=== PATIENT | female | born 1955 | race Caucasian/White ===

== ENCOUNTER 2023-08-30 16:24 | Emergency (ER) | payer BC ==
[~2023-08-30] VITALS: Ht 157.5 cm; Wt 61.4 kg
[2023-08-30 16:37] VITALS: BP 162/74; PULSE 62; RESP 18; TEMP 98; O2SAT 100
[2023-08-30 17:10] LABS: BASOPHILS % (AUTO) 0.2 % (0-1); EOSINOPHILS # (AUTO) 0.2 X10'3 (0-0.9); EOSINOPHILS % (AUTO) 3.2 % (0-6); HEMOGLOBIN 13.7 g/dl (12.0-16.0); LYMPHOCYTES % (AUTO) 30.5 % (21-51); MEAN CORPUSCULAR HEMOGLOBIN 29.8 PG (27.0-31.0); MEAN CORPUSCULAR HGB CONC 33.5 g/dL (33.0-36.5); MEAN PLATELET VOLUME 10.3 FL (7.4-10.4); MONOCYTES # (AUTO) 0.4 X10'3 (0-0.9); MONOCYTES % (AUTO) 6.7 % (2-12); NEUTROPHILS # (AUTO) 3.8 X10'3 (1.8-7.7); NEUTROPHILS % (AUTO) 59.4 % (42-75); PLATELET COUNT 121 X10'3 (140-440); RED BLOOD COUNT 4.61 X10'6 (4.20-5.60); RED CELL DISTRIBUTION WIDTH 14.1 % (11.5-14.5); WHITE BLOOD COUNT 6.4 X10'3 (4.5-11.0)
[2023-08-30 17:33] LABS: ALBUMIN 4.4 G/DL (3.4-5.0); ANION GAP 7 (8-16); BLOOD UREA NITROGEN 15 MG/DL (7-18); BUN/CREATININE RATIO 18.1 (10.0-20.0); CALCIUM 10.2 MG/DL (8.5-10.1); CHLORIDE 106 MMOL/L (99-107); CREATININE 0.83 MG/DL (0.40-0.90); GLUCOSE 110 MG/DL (70-104); POTASSIUM 3.9 MMOL/L (3.5-5.1); PRO BRAIN NATRIURETIC PEPTIDE 200 PG/ML (0-125); SODIUM 141 MMOL/L (135-145); TOTAL CARBON DIOXIDE 28.5 MMOL/L (24-32); eCRCL 53 ML/MIN; eGFR 69 ML/MIN
== END 2023-08-30 21:52 | disposition left against medical advice (07) ==
LOC: ER 16:25
DX: R07.9 Chest pain, unspecified (principal); Z53.21 Procedure and treatment not carried out due to patient leaving prior to being seen by health care provider
CPT/HCPCS: 36415; 71045; 80048; 83880; 84484; 85025; 93005

== ENCOUNTER 2023-09-13 07:35 | Emergency (ER) | payer BC ==
[~2023-09-13] VITALS: Ht 157.5 cm; Wt 61.0 kg
[2023-09-13 07:39] VITALS: BP 123/54; PULSE 54; RESP 16; TEMP 98.6; O2SAT 100
== END 2023-09-13 10:54 | disposition left against medical advice (07) ==
LOC: ER 07:36
DX: R19.7 Diarrhea, unspecified (principal); F41.9 Anxiety disorder, unspecified; Z53.21 Procedure and treatment not carried out due to patient leaving prior to being seen by health care provider

== ENCOUNTER 2023-10-07 15:51 | Emergency (ER) | payer BC, MEDICAID ==
[~2023-10-07] VITALS: Ht 157.5 cm; Wt 62.4 kg
[2023-10-07 16:19] LABS: BASOPHILS % (AUTO) 0.4 % (0-1); EOSINOPHILS # (AUTO) 0.2 X10'3 (0-0.9); EOSINOPHILS % (AUTO) 2.7 % (0-6); HEMATOCRIT 34.6 % (35.0-45.0); LYMPHOCYTES # (AUTO) 1.9 X10'3 (1.1-4.8); LYMPHOCYTES % (AUTO) 30.8 % (21-51); MEAN CORPUSCULAR HEMOGLOBIN 30.9 PG (27.0-31.0); MEAN CORPUSCULAR HGB CONC 34.7 g/dL (33.0-36.5); MEAN CORPUSCULAR VOLUME 89.2 FL (78-98); MEAN PLATELET VOLUME 10.4 FL (7.4-10.4); MONOCYTES # (AUTO) 0.4 X10'3 (0-0.9); MONOCYTES % (AUTO) 6.7 % (2-12); NEUTROPHILS # (AUTO) 3.6 X10'3 (1.8-7.7); NEUTROPHILS % (AUTO) 59.4 % (42-75); PLATELET COUNT 107 X10'3 (140-440); RED BLOOD COUNT 3.88 X10'6 (4.20-5.60); RED CELL DISTRIBUTION WIDTH 14.3 % (11.5-14.5); WHITE BLOOD COUNT 6.1 X10'3 (4.5-11.0)
[2023-10-07 16:31] LABS: ALANINE AMINOTRANSFERASE 42 U/L (12-78); ALBUMIN 3.7 G/DL (3.4-5.0); ALKALINE PHOSPHATASE 108 IU/L (46-116); ANION GAP 5 (8-16); ASPARTATE AMINO TRANSFERASE 28 U/L (10-37); BILIRUBIN,TOTAL 0.7 MG/DL (0.1-1.0); BLOOD UREA NITROGEN 7 MG/DL (7-18); BUN/CREATININE RATIO 7.3 (10.0-20.0); CALCIUM 8.9 MG/DL (8.5-10.1); CHLORIDE 105 MMOL/L (99-107); CREATININE 0.96 MG/DL (0.40-0.90); GLUCOSE 95 MG/DL (70-104); LIPASE 28 U/L (16-77); POTASSIUM 3.9 MMOL/L (3.5-5.1); SODIUM 141 MMOL/L (135-145); TOTAL CARBON DIOXIDE 30.8 MMOL/L (24-32); TOTAL PROTEIN 7.5 G/DL (6.4-8.2); eCRCL 46 ML/MIN; eGFR 58 ML/MIN
[2023-10-07 17:18] LABS: BILIRUBIN,URINE NEGATIVE (Neg); CLARITY,URINE CLEAR (Clear); COLOR,URINE YELLOW (Yellow); GLUCOSE, URINE NEGATIVE (Neg); KETONES,URINE NEGATIVE (Neg); LEUKOCYTE ESTERASE ,URINE MODERATE (Neg); NITRITES, URINE NEGATIVE (Neg); OCCULT BLOOD,URINE NEGATIVE (Neg); PROTEIN,URINE NEGATIVE (Neg); UROBILINOGEN,URINE 0.2 E.U/dL (0.2-1.0)
[2023-10-07 17:19] LABS: UA COLLECTION TYPE CLN CATCH MIDSTREAM
[2023-10-07 17:20] LABS: URINE HCG NEGATIVE (NEG)
[2023-10-07 17:26] LABS: BACTERIA,URINE FEW /HPF (Neg); MUCUS STRANDS FEW /LPF (Neg); SQUAMOUS EPITHELIAL CELL,UR MODERATE /LPF (FEW)
[2023-10-07] MEDS ORDERED: CIPR-202 PO (18:18)
[2023-10-07 18:49] VITALS: BP 115/55; PULSE 52; RESP 16; TEMP 98.1; O2SAT 95
== END 2023-10-07 18:51 | disposition home or self-care (01) ==
LOC: ER 15:51
DX: G62.9 Polyneuropathy, unspecified (principal); Z88.8 Allergy status to other drugs, medicaments and biological substances
CPT/HCPCS: 36415; 74176; 80053; 81001; 81025; 83690; 85025; 87088; 99284

== ENCOUNTER 2023-11-01 09:26 | Emergency (ER) | payer BC, MEDICAID ==
[~2023-11-01] VITALS: Ht 157.5 cm; Wt 58.0 kg
[~2023-11-01 09:26] MED LIST: CIPR-202 PO
[2023-11-01 09:34] VITALS: TEMP 97.9
[2023-11-01] MEDS ORDERED: ATOR10TA87 PO (10:02)
[2023-11-01] MEDS ORDERED: SERT50TA PO (10:02)
[2023-11-01] MEDS ORDERED: LITH450T2 PO (10:02)
[2023-11-01 10:35] LABS: ALANINE AMINOTRANSFERASE 51 U/L (12-78); ALBUMIN 4.8 G/DL (3.4-5.0); ALBUMIN/GLOBULIN RATIO 1.2 (1.1-1.5); ALKALINE PHOSPHATASE 107 IU/L (46-116); ANION GAP 12 (8-16); ASPARTATE AMINO TRANSFERASE 30 U/L (10-37); BILIRUBIN,TOTAL 1.9 MG/DL (0.1-1.0); BLOOD UREA NITROGEN 10 MG/DL (7-18); BUN/CREATININE RATIO 9.7 (10.0-20.0); CALCIUM 9.9 MG/DL (8.5-10.1); CHLORIDE 107 MMOL/L (99-107); CREATININE 1.03 MG/DL (0.40-0.90); GLUCOSE 133 MG/DL (70-104); LIPASE 43 U/L (16-77); SODIUM 143 MMOL/L (135-145); TOTAL CARBON DIOXIDE 23.9 MMOL/L (24-32); TOTAL PROTEIN 8.8 G/DL (6.4-8.2); eCRCL 43 ML/MIN; eGFR 54 ML/MIN
[2023-11-01 10:38] LABS: BASOPHILS % (AUTO) 0.2 % (0-1); EOSINOPHILS # (AUTO) 0.1 X10'3 (0-0.9); EOSINOPHILS % (AUTO) 0.7 % (0-6); HEMOGLOBIN 14.3 g/dl (12.0-16.0); LYMPHOCYTES # (AUTO) 2.4 X10'3 (1.1-4.8); LYMPHOCYTES % (AUTO) 20.8 % (21-51); MEAN CORPUSCULAR HEMOGLOBIN 30.5 PG (27.0-31.0); MEAN CORPUSCULAR HGB CONC 33.2 g/dL (33.0-36.5); MEAN CORPUSCULAR VOLUME 91.8 FL (78-98); MEAN PLATELET VOLUME 10.6 FL (7.4-10.4); MONOCYTES # (AUTO) 0.6 X10'3 (0-0.9); MONOCYTES % (AUTO) 5.6 % (2-12); NEUTROPHILS # (AUTO) 8.2 X10'3 (1.8-7.7); NEUTROPHILS % (AUTO) 72.7 % (42-75); PLATELET COUNT 157 X10'3 (140-440); RED BLOOD COUNT 4.68 X10'6 (4.20-5.60); RED CELL DISTRIBUTION WIDTH 13.7 % (11.5-14.5); WHITE BLOOD COUNT 11.3 X10'3 (4.5-11.0)
[2023-11-01 11:02] LABS: LARGE PLATELETS FEW; PLATELET ESTIMATE NORMAL
[2023-11-01] MEDS: normal saline 1000ML IV soln IVB ONE (11:24)
[2023-11-01] MEDS: ondansetron/PF 4mg/2ml inj IV ONE (11:24)
[2023-11-01] MEDS ORDERED: glycopyrrolate 0.2mg/ml inj IV ONE (11:40)
[2023-11-01] MEDS: glycopyrrolate 0.2mg/ml inj IV ONE (12:36)
[2023-11-01] MEDS: acetaminophen 1,000mg/100ml IV 100 ML IV STA (12:37)
[2023-11-01] MEDS: potassium Cl 20 mEq SR tablet PO STA (12:37)
[2023-11-01] MEDS ORDERED: ONDA-243 PO (12:40)
[2023-11-01] MEDS ORDERED: DICY10CA88 PO (12:40)
[2023-11-01 13:22] VITALS: BP 142/55; PULSE 52; RESP 16; O2SAT 97
== END 2023-11-01 13:43 | disposition home or self-care (01) ==
LOC: ER 09:26
DX: R19.7 Diarrhea, unspecified (principal); R10.30 Lower abdominal pain, unspecified; Z88.1 Allergy status to other antibiotic agents; Z88.8 Allergy status to other drugs, medicaments and biological substances; Z79.899 Other long term (current) drug therapy
CPT/HCPCS: 36415; 74176; 80053; 83690; 84145; 85008; 85025; 96361; 96374; 96375; 99285; J0131; J2405; J3490; J7030

== ENCOUNTER 2024-06-13 17:04 | Emergency (ER) | payer MEDICARE, MEDICAID ==
[~2024-06-13] VITALS: Ht 157.5 cm; Wt 57.0 kg
[~2024-06-13 17:04] MED LIST changes: +ATOR10TA PO; -CIPR-202 PO; +HYDR-3686 PO; +LURA60TA PO; +SUMA25TA9 PO
[2024-06-13 17:19] VITALS: BP 118/70; PULSE 69; TEMP 98.5; O2SAT 100
[2024-06-13] MEDS ORDERED: PRED20TA PO (18:57)
[2024-06-13 19:09] VITALS: RESP 16
[2024-06-13] MEDS: ketorolac trometh 15mg/ml vial 15 MG/ML ML IM ONE (19:09)
== END 2024-06-13 19:10 | disposition home or self-care (01) ==
LOC: ER 17:04
DX: M70.71 Other bursitis of hip, right hip (principal); F41.9 Anxiety disorder, unspecified; M70.61 Trochanteric bursitis, right hip; Z88.1 Allergy status to other antibiotic agents; Z88.8 Allergy status to other drugs, medicaments and biological substances; Z79.899 Other long term (current) drug therapy; W19.XXXA Unspecified fall, initial encounter; Y93.89 Activity, other specified; Y92.89 Other specified places as the place of occurrence of the external cause; Y99.8 Other external cause status
CPT/HCPCS: 73502; 96372; 99284; J1885